=== PATIENT | female | born 1950 | race Two or more races ===

== ENCOUNTER 2017-12-09 07:03 | Outpatient (CLI) | payer OTHER | END 2017-12-09 07:13 | disposition home or self-care (01) | LOC: LAB 07:03 | DX: G63 Polyneuropathy in diseases classified elsewhere (principal); I10 Essential (primary) hypertension; M25.50 Pain in unspecified joint; Z12.11 Encounter for screening for malignant neoplasm of colon; Z12.31 Encounter for screening mammogram for malignant neoplasm of breast; M81.8 Other osteoporosis without current pathological fracture; E55.9 Vitamin D deficiency, unspecified ==

== ENCOUNTER 2017-12-09 08:15 | Outpatient (CLI) | payer OTHER | END 2017-12-09 08:21 | disposition home or self-care (01) | LOC: MAMO-SONO 08:15 | DX: Z12.31 Encounter for screening mammogram for malignant neoplasm of breast (principal); M25.50 Pain in unspecified joint; Z12.11 Encounter for screening for malignant neoplasm of colon; M81.8 Other osteoporosis without current pathological fracture ==

== ENCOUNTER 2018-04-13 07:11 | Outpatient (CLI) | payer OTHER | END 2018-04-13 07:20 | disposition home or self-care (01) | LOC: LAB 07:11 | DX: M81.8 Other osteoporosis without current pathological fracture (principal); G63 Polyneuropathy in diseases classified elsewhere; I10 Essential (primary) hypertension ==

== ENCOUNTER 2018-04-13 08:54 | Outpatient (CLI) | payer OTHER | END 2018-04-13 17:00 | disposition home or self-care (01) | LOC: MRI 08:54 | DX: G30.1 Alzheimer's disease with late onset (principal) | CPT/HCPCS: 70553 ==

== ENCOUNTER 2018-04-17 10:43 | Outpatient (CLI) | payer OTHER | END 2018-04-17 11:05 | disposition home or self-care (01) | LOC: NUCLEAR 10:43 | DX: M81.0 Age-related osteoporosis without current pathological fracture (principal) ==

== ENCOUNTER → 2019-07-10 | Outpatient (CLI) | payer OTHER | END | disposition home or self-care (01) | LOC: RAD 12:01 | DX: M54.2 Cervicalgia (principal); M54.6 Pain in thoracic spine; M54.5 Low back pain; M54.31 Sciatica, right side ==

== ENCOUNTER 2020-08-04 09:51 | Outpatient (CLI) | payer OTHER | END 2020-08-04 09:54 | disposition home or self-care (01) | LOC: MAMO-SONO 09:51 | DX: Z12.31 Encounter for screening mammogram for malignant neoplasm of breast (principal); N64.59 Other signs and symptoms in breast ==

== ENCOUNTER 2021-08-05 10:56 | Outpatient (CLI) | payer OTHER | END 2021-08-05 11:02 | disposition home or self-care (01) | LOC: TOM 10:56 | PROVIDERS: ATTEND Internal Medicine Pulmonary Disease | DX: R91.8 Other nonspecific abnormal finding of lung field (principal); R06.9 Unspecified abnormalities of breathing; J84.10 Pulmonary fibrosis, unspecified ==

== ENCOUNTER 2022-01-12 10:38 | Outpatient (CLI) | payer OTHER | END 2022-01-12 10:49 | disposition home or self-care (01) | LOC: MAMO-SONO 10:38 | PROVIDERS: ATTEND Internal Medicine | DX: Z12.31 Encounter for screening mammogram for malignant neoplasm of breast (principal); N64.4 Mastodynia ==

== ENCOUNTER 2022-01-12 12:28 | Outpatient (CLI) | payer OTHER | END 2022-01-12 12:30 | disposition home or self-care (01) | LOC: NUCLEAR 12:28 | PROVIDERS: ATTEND Internal Medicine | DX: M81.8 Other osteoporosis without current pathological fracture (principal); M25.50 Pain in unspecified joint; G63 Polyneuropathy in diseases classified elsewhere; R73.01 Impaired fasting glucose; R06.83 Snoring; I11.9 Hypertensive heart disease without heart failure; F03.90 Unspecified dementia, unspecified severity, without behavioral disturbance, psychotic disturbance, mood disturbance, and anxiety ==

== ENCOUNTER 2023-05-17 08:15 | Outpatient (CLI) | payer OTHER | END 2023-05-17 10:02 | disposition home or self-care (01) | LOC: RAD 08:15 | PROVIDERS: ATTEND Psychiatry & Neurology Neurology | DX: G70.9 Myoneural disorder, unspecified (principal); G30.1 Alzheimer's disease with late onset; M81.8 Other osteoporosis without current pathological fracture; I11.9 Hypertensive heart disease without heart failure; R06.83 Snoring; R73.01 Impaired fasting glucose; G25.81 Restless legs syndrome; Z12.31 Encounter for screening mammogram for malignant neoplasm of breast; N64.4 Mastodynia | CPT/HCPCS: 70551 ==

== ENCOUNTER 2023-06-18 09:13 | Emergency (ER) | payer OTHER ==
[~2023-06-18] VITALS: Ht 152.4 cm; Wt 69.4 kg
[2023-06-18] MEDS ORDERED: DRIZALMA SPRINK20 MG PO (09:45)
[2023-06-18] MEDS ORDERED: CLOPIDOGREL300 MG PO (09:45)
[2023-06-18] MEDS ORDERED: METAXALONE400 MG PO (09:45)
[2023-06-18] MEDS ORDERED: CALTRATE 600+D1 EAC1 PO (09:46)
== END 2023-06-18 11:39 | disposition home or self-care (01) ==
LOC: ER 09:14
DX: B02.9 Zoster without complications (principal)

== ENCOUNTER 2024-08-02 10:34 | Outpatient (CLI) | payer OTHER ==
[~2024-08-02 10:34] MED LIST: CALTRATE 600+D1 EAC1 PO; CLOPIDOGREL300 MG PO; DRIZALMA SPRINK20 MG PO; METAXALONE400 MG PO
== END 2024-08-02 10:48 | disposition home or self-care (01) ==
LOC: MAMO-SONO 10:34
PROVIDERS: ATTEND Internal Medicine
DX: N64.4 Mastodynia (principal); Z12.31 Encounter for screening mammogram for malignant neoplasm of breast; M50.20 Other cervical disc displacement, unspecified cervical region
CPT/HCPCS: 72141

== ENCOUNTER → 2024-08-02 12:23 | Outpatient (CLI) | payer OTHER ==
[2024-08-02 13:50] LABS: HEMATOCRIT 42.4 % (36.0-45.00); HEMOGLOBIN 14.3 g/dL (12.0-15.00); MEAN CELL VOLUME 92.7 fL (80.00-100.00); MEAN CORPUSCULAR HEMOGLOBIN 31.2 pg (27.00-32.0); MEAN CORPUSCULAR HGB CONC 33.7 g/dl (32.0-36.0); PLATELET COUNT 245 K/uL (150-450); RED BLOOD COUNT 4.57 M/uL (4.00-6.00); RED CELL DISTRIBUTION WIDTH 14.2 % (11.5-14.5)
[2024-08-02 13:56] LABS: URINE APPEARANCE Clear; URINE BILIRRUBIN Negative (NEGATIVE); URINE BLOOD Moderate; URINE COLOR Yellow; URINE GLUCOSE Negative (NEGATIVE); URINE KETONE Negative (NEGATIVE); URINE LEUKOCYTE Trace; URINE NITRATE Negative; URINE PROTEIN Negative (NEGATIVE); URINE UROBILINOGEN 0.2 E.U./dl
[2024-08-02 13:57] LABS: URINE BACTERIA 1584.9 uL (0.0-1933); URINE EPITHELIAL CELLS 42.8 uL (0.0-38.8); URINE RBC 165.8 uL (0.0-20.8); URINE WBC 15.9 uL (0.0-23.2)
[2024-08-02 13:59] LABS: URINE CAST 0.29 uL (0.0-1.40)
[2024-08-02 14:33] LABS: URIC ACID 4.6 mg/dL (2.5-7.5)
[2024-08-02 14:37] LABS: ALBUMIN 3.4 gm/dL (3.4-5.0); BILIRUBIN TOTAL 0.29 mg/dL (0.3-1.2); CALCIUM 9.4 mg/dL (8.5-10.1); CHOL HDL RATIO 2.6 (0-5.0); CREATININE SERUM 0.77 mg/dL (0.55-1.02); GFR 73.08; GLOBULINA 4.6 G/DL (2.4-3.5); POTASSIUM 4.5 mEq/L (3.5-5.1); T4 FREE 0.9 NG/ML (0.76-1.46)
[2024-08-02 14:48] LABS: VITAMIN D3 25 HYDROXY 44.58 ng/ml (30-120)
== END | disposition home or self-care (01) ==
LOC: LAB 12:23
PROVIDERS: ATTEND Internal Medicine
DX: E78.1 Pure hyperglyceridemia (principal); G25.81 Restless legs syndrome; R73.01 Impaired fasting glucose; I11.9 Hypertensive heart disease without heart failure; F03.90 Unspecified dementia, unspecified severity, without behavioral disturbance, psychotic disturbance, mood disturbance, and anxiety; M81.8 Other osteoporosis without current pathological fracture; G63 Polyneuropathy in diseases classified elsewhere; E55.9 Vitamin D deficiency, unspecified; E02 Subclinical iodine-deficiency hypothyroidism

== ENCOUNTER 2024-11-06 08:04 | Outpatient (CLI) | payer OTHER | END 2024-11-06 08:07 | disposition home or self-care (01) | LOC: RAD 08:04 | PROVIDERS: ATTEND Internal Medicine | DX: M25.571 Pain in right ankle and joints of right foot (principal) ==

== ENCOUNTER → 2024-11-06 08:46 | Outpatient (CLI) | payer OTHER ==
[2024-11-06 10:22] LABS: CHOL HDL RATIO 2.5 (0-5.0); CREATININE SERUM 0.79 mg/dL (0.55-1.02); GFR 70.76; POTASSIUM 3.79 mEq/L (3.5-5.1)
== END | disposition home or self-care (01) ==
LOC: LAB 08:46
PROVIDERS: ATTEND Internal Medicine
DX: E78.1 Pure hyperglyceridemia (principal); G25.81 Restless legs syndrome; I11.9 Hypertensive heart disease without heart failure; F03.90 Unspecified dementia, unspecified severity, without behavioral disturbance, psychotic disturbance, mood disturbance, and anxiety; M81.8 Other osteoporosis without current pathological fracture; G63 Polyneuropathy in diseases classified elsewhere